=== PATIENT | female | born 1955 | race Caucasian/White ===

== ENCOUNTER 2021-11-23 05:40 | Inpatient (IN) ==
[2021-11-23] MEDS ORDERED: nitroGLYCERIN DRIP 25,000 MCG/250 ML BTL ONE (05:49)
[2021-11-23] MEDS ORDERED: Lidocaine 1% VIAL 10 MG/ML VIAL ONE (05:49)
[2021-11-23] MEDS ORDERED: Heparin 2 UNITS/ML 1000 mls 2,000 ML IV ONE (05:49)
[2021-11-23] MEDS ORDERED: Iohexol 350 (CONTRAST) 200 ML MDV IV ONE (05:49)
[2021-11-23] MEDS ORDERED: Midazolam 5 mg/5 ml VIAL 1 mg/ml 5 ml VIAL (5 mg) ONE (06:01)
[2021-11-23] MEDS ORDERED: fentaNYL 100 mcg/2 ml 50 MCG/ML VIAL ONE (06:02)
[2021-11-23] MEDS ORDERED: Heparin 1,000 UNIT/ML 10 ml (10,000 UNITS) CATHLAB/DIALYSIS ONE (06:09)
[2021-11-23] MEDS ORDERED: VERAPAMIL 2.5 MG/ML 2 ML VIAL ** 5 mg/2 ml ONE (06:10)
[2021-11-23] MEDS ORDERED: Bivalirudin 250 MG VIAL ONE (06:18)
[2021-11-23] MEDS ORDERED: NS 0.9% 1000 ml BAG 1,000 ML IV SCH (07:00)
[2021-11-23] MEDS ORDERED: Furosemide 20 mg/2 ml IV VIAL IV ONE (07:23)
[2021-11-23] MEDS ORDERED: Furosemide 20 mg/2 ml IV VIAL ONE (08:00)
[2021-11-23 08:24] LABS: Troponin I 3.14 ng/mL (<0.03)
[2021-11-23 14:31] LABS: Troponin I 3.93 ng/mL (<0.03)
[2021-11-23 20:19] LABS: Calcium 9.4 mg/dL (8.6-10.3); Potassium 3.7 mmol/L (3.5-5.0); eGFR CKD-EPI 64.1 (>60)
[2021-11-24 06:31] LABS: ABS Eosinophils 0.5 10^3/ul (0-0.6); ABS Lymphocytes 1.3 10^3/ul (1.0-4.8); ABS Monocytes 0.6 10^3/ul (0-0.8); ABS Neutrophils 4.7 10^3/ul (1.5-7.7); Eosinophil % 6.5 %; Hematocrit 40 % (35-47); Hemoglobin 13.6 g/dL (12.0-16.0); Lymphocyte % 18.5 %; Mean Corpuscular HGB Conc 34 g/dL (31-36); Mean Corpuscular Hemoglobin 32 pg (27-31); Mean Corpuscular Volume 94 fL (80-97); Mean Platelet Volume 8.4 fL (7.4-10.4); Platelet Count 216 10^3/uL (150-450); Red Blood Count 4.23 10^6 /uL (3.70-4.87); Red Cell Distribution Width 14 % (10-15); White Blood Count 7.1 10^3/uL (3.5-10.8)
[2021-11-24 07:04] LABS: Anion Gap 10 mmol/L (2-11); CO2 Carbon Dioxide 22 mmol/L (22-32); Calcium 8.8 mg/dL (8.6-10.3); Chloride 109 mmol/L (101-111); Potassium 3.8 mmol/L (3.5-5.0); Sodium 141 mmol/L (135-145)
[2021-11-24 07:10] LABS: ALT 22 U/L (7-52); AST 62 U/L (13-39); Albumin/Globulin Ratio 1.7 (1-3); Alkaline Phosphatase 68 U/L (35-149); Blood Urea Nitrogen 10 mg/dL (6-24); Cholesterol 173 mg/dL; Globulin 2.3 g/dL (2-4); Glucose 101 mg/dL (70-100); HDL Cholesterol 42.3 mg/dL; LDL Cholesterol 98 mg/dL; Total Protein 6.3 g/dL (6.4-8.9); Triglycerides 164 mg/dL; eGFR CKD-EPI 73.9 (>60)
[2021-11-24] MEDS ORDERED: Perflutren Lipid Microsphere 3 ML VIAL ONE (10:27)
[2021-11-24 10:34] LABS: Troponin I 11.86 ng/mL (<0.03)
[2021-11-24] MEDS ORDERED: Polyethylene Glycol 3350 17 GM PACKET PO STA (11:41)
[2021-11-24] MEDS ORDERED: Polyethylene Glycol 3350 17 GM PACKET ONE (11:49)
[2021-11-25 05:31] LABS: ABS Basophils 0.2 10^3/ul (0-0.2); ABS Eosinophils 0.3 10^3/ul (0-0.6); ABS Lymphocytes 1.1 10^3/ul (1.0-4.8); ABS Monocytes 0.6 10^3/ul (0-0.8); ABS Neutrophils 4.4 10^3/ul (1.5-7.7); Eosinophil % 5.2 %; Hematocrit 38 % (35-47); Hemoglobin 13.3 g/dL (12.0-16.0); Mean Corpuscular HGB Conc 35 g/dL (31-36); Mean Corpuscular Hemoglobin 33 pg (27-31); Mean Corpuscular Volume 94 fL (80-97); Mean Platelet Volume 8.6 fL (7.4-10.4); Nucleated Red Blood Cells % 0.1; Platelet Count 187 10^3/uL (150-450); Red Blood Count 4.01 10^6 /uL (3.70-4.87); Red Cell Distribution Width 14 % (10-15); White Blood Count 6.7 10^3/uL (3.5-10.8)
[2021-11-25 05:58] LABS: Anion Gap 7 mmol/L (2-11); Blood Urea Nitrogen 10 mg/dL (6-24); CO2 Carbon Dioxide 25 mmol/L (22-32); Calcium 8.9 mg/dL (8.6-10.3); Chloride 108 mmol/L (101-111); Glucose 106 mg/dL (70-100); Magnesium 2.1 mg/dL (1.9-2.7); Sodium 140 mmol/L (135-145); eGFR CKD-EPI 70.5 (>60)
[2021-11-25 06:04] LABS: Troponin I 6.07 ng/mL (<0.03)
[2021-11-25] MEDS ORDERED: Pneumococcal Vac 23-Polyvalent IM ONE (09:00)
[2021-11-25] MEDS ORDERED: Potassium Chlor 20 meq TAB.ER PO SCH (09:00)
[2021-11-26 04:59] VITALS: BP 95/61
== END 2021-11-26 10:58 | disposition home or self-care (01) | DRG 247 ==
LOC: ED 05:40 → CHICARD 06:12 → ICU 07:37 → MEDTELE 11-24 12:17